=== PATIENT | female | born 1935 | race Caucasian/White ===

== ENCOUNTER 2017-05-31 13:15 | Day surgery (SDC) | payer MEDICARE, OTHER ==
[~2017-05-31] VITALS: Ht 154.9 cm; Wt 52.3 kg
[2017-05-31 14:04] VITALS: Ht 154.9 cm; Wt 52.3 kg
[2017-05-31] MEDS ORDERED: PANT40TA3 PO (14:36)
[2017-05-31] MEDS ORDERED: Triamterene PO (14:36)
[2017-05-31] MEDS ORDERED: ZOC10 PO (14:36)
[2017-05-31] MEDS ORDERED: LOSA100T7 PO (14:36)
[2017-05-31] MEDS ORDERED: ISOS30TA5 PO (14:36)
[2017-05-31] MEDS ORDERED: LEVO25TA53 PO (14:36)
[2017-05-31] MEDS ORDERED: HYD25 PO (14:36)
[2017-05-31] MEDS ORDERED: PROPOFOL 20 ML ONE (14:57)
[2017-05-31] MEDS ORDERED: MIDAZOLAM 1 MG/ML 2 ML INJ ONE (14:57)
[2017-05-31 15:02] VITALS: BP 135/97; PULSE 58; RESP 18
[2017-05-31 16:01] VITALS: BP 139/60; PULSE 47; RESP 14
--- NOTE | 2017-06-05 08:58 | GILP ---
DATE OF PROCEDURE: 05/31/2017 PROCEDURE PERFORMED: 1. Esophagogastroduodenoscopy and biopsy. 2. Colonoscopy and biopsy. PREOPERATIVE DIAGNOSES: 1. Abdominal pain. 2. Weight loss. 3. Change in bowel habits. 4. Patient never had screening colonoscopy. SURGEON: Carl Solis MD POSTOPERATIVE DIAGNOSES: 1. Hiatal hernia. 2. Gastroesophageal reflux disease. 3. Gastritis. 4. Gastric mucosal biopsies were taken for Helicobacter pylori test. 5. Colonoscopy all the way to the cecum. 6. Small transverse colon polyp was removed using the biopsy forceps. 7. Internal hemorrhoids. INDICATION: Ms. Torrie Sorto is an 81-year-old female patient who had upper abdominal pain, not responding to therapy. The patient also had weight loss. The patient noticed a change in the bowel habits. She never had a screening colonoscopy so the patient was scheduled for a endoscopy and colonoscopy for further evaluation. The procedures and possible complications were well explained to the patient and the family and consent was obtained. DESCRIPTION OF PROCEDURE: Under influence of anesthesia, the gastroscope was carefully introduced into the esophagus and under direct vision it was advanced through the stomach into the pylorus into the duodenal bulb and descending duodenum. Findings: Esophagus: Revealed hiatal hernia and gastroesophageal reflux disease. Stomach: Severe gastritis. Gastric mucosal biopsies were taken for H. pylori test. Duodenum was normal. The colonoscope was carefully introduced in the rectum and under direct vision it was advanced all the way to the cecum. Findings: There was a small transverse colon polyp and it was removed using the biopsy forceps. Severe internal hemorrhoids. She tolerated the procedures very well and there were no complications from the procedures. At the end of the procedures, she was awake with stable vital signs and she was discharged home in the care of her family. IMPRESSION: Please see postop diagnoses. PLAN: Dexilant 60 mg p.o. q.a.m. Await histopathology reports. Because of the patient's age, she will not need another screening colonoscopy. Dictated By: MD TONI Edwards/[email or web address]/[email or web address] /Document#: [id number]
== END 2017-05-31 17:29 | disposition home or self-care (01) ==
LOC: GIL 13:15
PROVIDERS: ATTEND Internal Medicine Gastroenterology
DX: R19.4 Change in bowel habit (principal); K44.9 Diaphragmatic hernia without obstruction or gangrene; K64.8 Other hemorrhoids; K21.9 Gastro-esophageal reflux disease without esophagitis; K29.70 Gastritis, unspecified, without bleeding; D12.3 Benign neoplasm of transverse colon; I10 Essential (primary) hypertension
CPT/HCPCS: 43239; 45380; 87081; 88305; J2250